=== PATIENT | female | born 1980 | race Native Hawaiian/Other Pacific Islander ===

== ENCOUNTER 2020-05-16 10:16 | Emergency (ER) | payer SELFPAY ==
[2020-05-16 11:08] LABS: Basophils % (Auto) 0.4 % (0.0-1.8); Eosinophils # (Auto) 0.2 K/mm3 (0.0-0.4); Eosinophils % (Auto) 1.8 % (0.0-4.3); Hematocrit 42.1 % (30.3-42.9); Mean Corpuscular HGB Conc 33 % (30-34); Mean Corpuscular Volume 93 fl (79-97); Monocytes # (Auto) 0.6 K/mm3 (0.0-0.8); Monocytes % (Auto) 6.3 % (0.0-7.3); Platelet Count 244 K/mm3 (140-440); Red Blood Count 4.54 M/mm3 (3.65-5.03); Red Cell Distribution Width 15.1 % (13.2-15.2)
--- NOTE | 2020-05-16 11:59 | Ultrasound Report ---
ULTRASOUND OBSTETRIC INDICATION / CLINICAL INFORMATION: pain, bleeding. Clinical Gestational Age (GA): 8.0 weeks.days TECHNIQUE: Transvaginal. COMPARISON: None available. FINDINGS: GESTATIONAL SAC: No intrauterine gestational sac is identified. YOLK SAC: No yolk sac is seen. EMBRYO/FETUS: No pole is identified. UTERUS: The uterus measures 11.3 x 5.6 x 6.7 cm. The endometrial stripe is thickened, measuring 2.6 c m in thickness. ADNEXA: The right ovary measures 2.4 x 1.5 x 1.9 cm and is normal in echogenicity. There is a 1 cm hy poechoic cyst arising from the right ovary. No significant Doppler flow is seen within this region. T he left ovary measures 2.2 x 1.8 x 1.7 cm and is normal in echogenicity. FREE FLUID: None. ADDITIONAL FINDINGS: None. IMPRESSION: 1. No intrauterine gestation is identified. The endometrial stripe is thickened. Correlation with bet a hCG levels and obstetric follow-up are recommended. demise and ectopic gestation cannot be ex cluded. 2. 1 cm right ovarian cyst without significant Doppler flow. Signer Name: Tanner Proctor MD Signed: 05/16/2020 11:55 AM Workstation Name: [id number]
[2020-05-16 12:49] VITALS: BP 120/65
[2020-05-16] MEDS ORDERED: IBUPROFEN 800 MG TAB PO ONE (13:05)
[2020-05-16] MEDS ORDERED: HYDROcodone/ACETAMINOPHEN 5-325 MG TAB PO ONE (13:05)
[2020-05-16] MEDS ORDERED: ONDANSETRON 4 MG ODT TAB PO ONE (13:05)
--- NOTE | 2020-05-16 13:34 | Emergency Department Report ---
ED Female HPI - General Chief complaint: Vaginal Bleeding Stated complaint: PREG BLEEDING Time Seen by Provider: 05/16/20 12:56 Source: patient Mode of arrival: Ambulatory Limitations: Language Barrier - History of Present Illness Initial comments: This is a 40-year-old female who is approximately 11 weeks with due date December 2020 who presents with heavy vaginal bleeding which began 11 PM last night. She had moderate right groin pain which radiates across the pelvic region. After ultrasound patient passed blood which contain tissue. Patient is quite upset that she may have had a miscarriage. MD Complaint: vaginal bleeding, pelvic pain -: Gradual, Last night Radiation: LLQ, RLQ Severity: moderate Severity scale (0 -10): 6 Quality: cramping Consistency: constant Improves with: none Worsens with: other (vaginal bleeding) Are you Now?: Yes Associated Symptoms: vaginal bleeding - Related Data Allergies Allergy/AdvReac Type Severity Reaction Status Date / Time No Known Allergies Allergy Unverified 05/16/20 10:39 ED Review of Systems ROS: Stated complaint: PREG BLEEDING Other details as noted in HPI Comment: All other systems reviewed and negative Constitutional: denies: fever, malaise Respiratory: denies: cough Gastrointestinal: abdominal pain Genitourinary: denies: urgency, dysuria Musculoskeletal: denies: back pain ED Past Medical Hx - Past Medical History Previous Medical History?: No - Surgical History Past Surgical History?: No - Social History Smoking Status: Never Smoker Substance Use Type: None ED Physical Exam - General Limitations: Language Barrier General appearance: alert, in no apparent distress - Head Head exam: Present: atraumatic, normocephalic - Eye Eye exam: Present: normal appearance - ENT ENT exam: Present: mucous membranes moist - Neck Neck exam: Present: normal inspection - Respiratory Respiratory exam: Present: normal lung sounds bilaterally. Absent: respiratory distress, wheezes, rales - Cardiovascular Cardiovascular Exam: Present: regular rate, normal rhythm, normal heart sounds. Absent: systolic murmur, diastolic murmur, rubs, gallop - GI/Abdominal GI/Abdominal exam: Present: soft, normal bowel sounds - Extremities Exam Extremities exam: Present: normal inspection - Back Exam Back exam: Present: normal inspection - Neurological Exam Neurological exam: Present: alert, oriented X3 - Psychiatric Psychiatric exam: Present: normal affect, normal mood, other (Tearful) - Skin Skin exam: Present: warm, dry, intact, normal color. Absent: rash ED Course Vital Signs 05/16/20 05/16/20 05/16/20 10:41 12:43 12:48 Temperature 99.4 F Pulse Rate 76 71 Respiratory 18 18 16 Rate Blood Pressure 122/61 Blood Pressure 120/65 [Left] O2 Sat by Pulse 99 100 Oximetry ED Medical Decision Making - Lab Data Result diagrams: 05/16/20 10:54 - Radiology Data Radiology results: report reviewed ULTRASOUND OBSTETRIC INDICATION / CLINICAL INFORMATION: pain, bleeding. Clinical Gestational Age (GA): 8.0 weeks.days TECHNIQUE: Transvaginal. COMPARISON: None available. FINDINGS: GESTATIONAL SAC: No intrauterine gestational sac is identified. YOLK SAC: No yolk sac is seen. EMBRYO/FETUS: No pole is identified. UTERUS: The uterus measures 11.3 x 5.6 x 6.7 cm. The endometrial stripe is thickened, measuring 2.6 cm in thickness. ADNEXA: The right ovary measures 2.4 x 1.5 x 1.9 cm and is normal in echogenicity. There is a 1 cm hypoechoic cyst arising from the right ovary. No significant Doppler flow is seen within this region. The left ovary measures 2.2 x 1.8 x 1.7 cm and is normal in echogenicity. FREE FLUID: None. ADDITIONAL FINDINGS: None. IMPRESSION: 1. No intrauterine gestation is identified. The endometrial stripe is thickened. Correlation with beta hCG levels and obstetric follow-up are recommended. demise and ectopic gestation cannot be excluded. 2. 1 cm right ovarian cyst without significant Doppler flow. - Medical Decision Making This is a 40-year-old female who presents with spontaneous complete . Ultrasound confirmed no intrauterine . I personally reviewed the blood and products of conception retained by patient in basin to confirm miscarriage. Blood type O+. Patient prescribed ibuprofen and [place] for pain. CBC within normal limits. Critical care attestation.: If time is entered above; I have spent that time in minutes in the direct care of this critically ill patient, excluding procedure time. ED Disposition Clinical Impression: Spontaneous miscarriage Disposition: DC-01 TO HOME OR SELFCARE Is pt being admited?: No Does the pt Need Aspirin: No Condition: Stable Instructions: Spontaneous Miscarriage (ED) Referrals: BRIGID FRYE MD [Staff Physician] - 3-5 Days Print Language: STATELESS
== END 2020-05-16 13:46 | disposition home or self-care (01) ==
LOC: ED 10:16
DX: O03.9 Complete or unspecified spontaneous abortion without complication (principal)
CPT/HCPCS: 36415; 76801; 76817; 84702; 84703; 85025; 86900; 86901; Q0162

== ENCOUNTER 2020-11-02 14:52 | Emergency (ER) | payer SELFPAY ==
--- NOTE | 2020-11-02 16:17 | Event Note ---
ED Screening Note Date of service: 11/02/20 Time: 16:14 ED Screening Note: pt currently 6wks 5 days . Presents with vaginal bleeding since last week. She is only has to use 1 pad and that was yesterday. She reports associated right-sided abdominal pain. She states that she went to the clinic this past Friday when she had an ultrasound. Showed no cardiac activity. She is G5, P3 Ab1 This initial assessment/diagnostic orders/clinical plan/treatment(s) is/are subject to change based on patients health status, clinical progression and re- assessment by fellow clinical providers in the ED. Further treatment and workup at subsequent clinical providers discretion. Patient/guardian urged not to elope from the ED as their condition may be serious if not clinically assessed and managed. Initial orders include: Labs/ultrasound
[2020-11-02 16:56] LABS: Basophils % (Auto) 0.3 % (0.0-1.8); Eosinophils # (Auto) 0.1 K/mm3 (0.0-0.4); Eosinophils % (Auto) 1.8 % (0.0-4.3); Hematocrit 40.8 % (30.3-42.9); Hemoglobin 13.9 gm/dl (10.1-14.3); Lymphocytes # (Auto) 1.9 K/mm3 (1.2-5.4); Lymphocytes % (Auto) 24.6 % (13.4-35.0); Mean Corpuscular HGB Conc 34 % (30-34); Mean Corpuscular Volume 93 fl (79-97); Monocytes # (Auto) 0.5 K/mm3 (0.0-0.8); Platelet Count 244 K/mm3 (140-440); Red Blood Count 4.41 M/mm3 (3.65-5.03)
[2020-11-02 17:06] LABS: Bacteria,Urine 1+ /HPF (Negative); Bilirubin,Urine NEG (Negative); Blood,Urine LG (Negative); Color,Urine Yellow (Yellow); Protein,Urine <15 mg/dL mg/dL (Negative); Urobilinogen,Urine < 2.0 mg/dL (<2.0)
[2020-11-02 17:08] LABS: Alanine Aminotransferase 25 units/L (7-56); Albumin 4.1 g/dL (3.9-5); BUN/Creatinine Ratio 14; Blood Urea Nitrogen 7 mg/dL (7-17); Calcium 8.8 mg/dL (8.4-10.2); Hemolysis Index 9
--- NOTE | 2020-11-02 19:17 | Ultrasound Report ---
ULTRASOUND OBSTETRIC INDICATION: Vaginal bleeding, 6.5 weeks . TECHNIQUE: Transabdominal. COMPARISON: None available. FINDINGS: GESTATIONAL SAC: Well-defined oval shape and intrauterine in location. YOLK SAC: Not seen. EMBRYO/FETUS: No significant abnormality. - [place]-Rump Length = 0.5 cm = 6 weeks, 2 day(s). - Heart Rate = 0 beats per minute. ADNEXA: No significant abnormality. FREE FLUID: None. ADDITIONAL FINDINGS: None. IMPRESSION: Single intrauterine without identification of heart tones, concerning for failed preg arvind. Signer Name: Pilo Galloway MD Signed: 11/02/2020 7:13 PM Workstation Name: [id number]
[2020-11-02 20:00] VITALS: BP 119/60
--- NOTE | 2020-11-02 20:30 | Emergency Department Report ---
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 Patient stated goes about less than 1 pad a day and describes it as more spotting. Patient does state that she is about 6 weeks and was seen by a clinic and was told that there is no heart rate. Patient denies any abdominal or pelvic pain. Patient denies any vaginal discharge or foul odor. Patient denies any nausea, vomiting, chest pain, shortness of breathe, fever, chills, headache, stiff neck, numbness, tingling. Patient denies any urinary symptoms. Patient denies any allergies or PMH. Family member present at bedside for translation purposes during physical exam and interview. -: week(s) Radiation: none Severity scale (0 -10): 0 Improves with: none Worsens with: none Associated symptoms: vaginal bleeding. denies: nausea/vomiting, vaginal d ischarge, abdominal pain, dysuria, headache, vision changes, malaise, dysparuenia, rash, seizure, shortness of breath, syncope, weakness Vaginal bleeding: light :: Yes Number of weeks : 6 Pre- care: none - Related Data Previous Rx's Medication Instructions Recorded Last Taken Type HYDROcodone/APAP 5-325 [[place] 1 each PO Q6HR PRN #10 tablet 05/16/20 Unknown Rx 5/325] Ibuprofen [Motrin 400 MG tab] 1 tab PO TID 5 Days #15 tablet 05/16/20 Unknown Rx Allergies Allergy/AdvReac Type Severity Reaction Status Date / Time No Known Allergies Allergy Unverified 05/16/20 10:39 ED Review of Systems ROS: Stated complaint: VAG BLEEDING 1 MOS PREG Other details as noted in HPI Comment: All other systems reviewed and negative Constitutional: denies: chills, fever Eyes: denies: eye pain, eye discharge, vision change ENT: denies: ear pain, throat pain Respiratory: denies: cough, shortness of breath, wheezing Cardiovascular: denies: chest pain, palpitations Endocrine: no symptoms reported Gastrointestinal: denies: abdominal pain, nausea, diarrhea Genitourinary: abnormal menses. denies: urgency, dysuria, discharge Musculoskeletal: denies: back pain, joint swelling, arthralgia Skin: denies: rash, lesions Neurological: denies: headache, weakness, paresthesias Psychiatric: denies: anxiety, depression Hematological/Lymphatic: denies: easy bleeding, easy bruising ED Past Medical Hx - Past Medical History Previous Medical History?: Yes - Surgical History Past Surgical History?: No - Social History Smoking Status: Never Smoker Substance Use Type: None - Medications Home Medications: Home Medications Medication Instructions Recorded Confirmed Last Taken Type HYDROcodone/APAP 5-325 [[place] 1 each PO Q6HR PRN #10 tablet 05/16/20 Unknown Rx 5/325] Ibuprofen [Motrin 400 MG tab] 1 tab PO TID 5 Days #15 tablet 05/16/20 Unknown Rx ED Physical Exam - General Limitations: Language Barrier General appearance: alert, in no apparent distress - Head Head exam: Present: atraumatic, normocephalic - Eye Eye exam: Present: normal appearance - Neck Neck exam: Present: normal inspection, full ROM - Respiratory Respiratory exam: Absent: respiratory distress - Cardiovascular Cardiovascular Exam: Present: regular rate - GI/Abdominal GI/Abdominal exam: Present: soft, normal bowel sounds. Absent: distended, tenderness, guarding, rebound, rigid, diminished bowel sounds - Extremities Exam Extremities exam: Present: full ROM - Back Exam Back exam: Present: normal inspection, full ROM. Absent: tenderness, CVA tenderness (R), CVA tenderness (L), muscle spasm, paraspinal tenderness, vertebral tenderness, rash noted - Neurological Exam Neurological exam: Present: alert, oriented X3, normal gait - Psychiatric Psychiatric exam: Present: normal affect, normal mood - Skin Skin exam: Present: warm, dry, intact, normal color. Absent: rash ED Course Vital Signs 11/02/20 19:59 Temperature 98.3 F Pulse Rate 78 Respiratory 16 Rate Blood Pressure 119/60 [Left] O2 Sat by Pulse 100 Oximetry - Reevaluation(s) Reevaluation #1: 11/02/20 20:28 Patient is speaking in full sentences with no signs of distress noted. ED Medical Decision Making - Lab Data Result diagrams: 11/02/20 16:36 11/02/20 16:36 Lab Results 11/02/20 11/02/20 11/02/20 Range/Units 16:21 16:36 16:36 WBC 7.6 (4.5-11.0) K/mm3 RBC 4.41 (3.65-5.03) M/mm3 Hgb 13.9 (10.1-14.3) gm/dl Hct 40.8 (30.3-42.9) % MCV 93 (79-97) fl MCH 32 (28-32) pg MCHC 34 (30-34) % RDW 14.0 (13.2-15.2) % Plt Count 244 (140-440) K/mm3 Lymph % (Auto) 24.6 (13.4-35.0) % [place] % (Auto) 7.0 (0.0-7.3) % Eos % (Auto) 1.8 (0.0-4.3) % Baso % (Auto) 0.3 (0.0-1.8) % Lymph # (Auto) 1.9 (1.2-5.4) K/mm3 [place] # (Auto) 0.5 (0.0-0.8) K/mm3 Eos # (Auto) 0.1 (0.0-0.4) K/mm3 Baso # (Auto) 0.0 (0.0-0.1) K/mm3 Seg Neutrophils % 66.3 (40.0-70.0) % Seg Neutrophils # 5.1 (1.8-7.7) K/mm3 Sodium 137 (137-145) mmol/L Potassium 3.8 (3.6-5.0) mmol/L Chloride 104.0 (98-107) mmol/L Carbon Dioxide 26 (22-30) mmol/L Anion Gap 11 mmol/L BUN 7 (7-17) mg/dL Creatinine 0.5 L (0.6-1.2) mg/dL Estimated GFR > 60 ml/min BUN/Creatinine Ratio 14 % Glucose 90 (65-100) mg/dL Calcium 8.8 (8.4-10.2) mg/dL Total Bilirubin < 0.20 (0.1-1.2) mg/dL AST 16 (5-40) units/L ALT 25 (7-56) units/L Alkaline Phosphatase 60 (35-129) units/L Total Protein 6.9 (6.3-8.2) g/dL Albumin 4.1 (3.9-5) g/dL Albumin/Globulin Ratio 1.5 % HCG, Quant (0-4) mIU/mL Urine Color Yellow (Yellow) Urine Turbidity Clear (Clear) Urine pH 6.0 (5.0-7.0) Ur Specific [place] 1.014 (1.003-1.030) Urine Protein <15 mg/dl (Negative) mg/dL Urine Glucose (UA) Neg (Negative) mg/dL Urine Ketones Neg (Negative) mg/dL Urine Blood Lg (Negative) Urine Nitrite Neg (Negative) Urine Bilirubin Neg (Negative) Urine Urobilinogen < 2.0 (<2.0) mg/dL Ur Leukocyte Esterase Sm (Negative) Urine WBC (Auto) 8.0 H (0.0-6.0) /HPF Urine RBC (Auto) 2.0 (0.0-6.0) /HPF U Epithel Cells (Auto) 3.0 (0-13.0) /HPF Urine Bacteria (Auto) 1+ (Negative) /HPF Blood Type Antibody Screen Screen 11/02/20 11/02/20 Range/Units 16:36 16:36 WBC (4.5-11.0) K/mm3 RBC (3.65-5.03) M/mm3 Hgb (10.1-14.3) gm/dl Hct (30.3-42.9) % MCV (79-97) fl MCH (28-32) pg MCHC (30-34) % RDW (13.2-15.2) % Plt Count (140-440) K/mm3 Lymph % (Auto) (13.4-35.0) % [place] % (Auto) (0.0-7.3) % Eos % (Auto) (0.0-4.3) % Baso % (Auto) (0.0-1.8) % Lymph # (Auto) (1.2-5.4) K/mm3 [place] # (Auto) (0.0-0.8) K/mm3 Eos # (Auto) (0.0-0.4) K/mm3 Baso # (Auto) (0.0-0.1) K/mm3 Seg Neutrophils % (40.0-70.0) % Seg Neutrophils # (1.8-7.7) K/mm3 Sodium (137-145) mmol/L Potassium (3.6-5.0) mmol/L Chloride (98-107) mmol/L Carbon Dioxide (22-30) mmol/L Anion Gap mmol/L BUN (7-17) mg/dL Creatinine (0.6-1.2) mg/dL Estimated GFR ml/min BUN/Creatinine Ratio % Glucose (65-100) mg/dL Calcium (8.4-10.2) mg/dL Total Bilirubin (0.1-1.2) mg/dL AST (5-40) units/L ALT (7-56) units/L Alkaline Phosphatase (35-129) units/L Total Protein (6.3-8.2) g/dL Albumin (3.9-5) g/dL Albumin/Globulin Ratio % HCG, Quant [id number] H (0-4) mIU/mL Urine Color (Yellow) Urine Turbidity (Clear) Urine pH (5.0-7.0) Ur Specific [place] (1.003-1.030) Urine Protein (Negative) mg/dL Urine Glucose (UA) (Negative) mg/dL Urine Ketones (Negative) mg/dL Urine Blood (Negative) Urine Nitrite (Negative) Urine Bilirubin (Negative) Urine Urobilinogen (<2.0) mg/dL Ur Leukocyte Esterase (Negative) Urine WBC (Auto) (0.0-6.0) /HPF Urine RBC (Auto) (0.0-6.0) /HPF U Epithel Cells (Auto) (0-13.0) /HPF Urine Bacteria (Auto) (Negative) /HPF Blood Type O POSITIVE Antibody Screen Negative Screen Negative - Radiology Data [facility] [address] [place] [address] Ultrasound Report Signed Patient: DONNIE HAQ MR#: [id number] : 1980 Acct:[id number] Age/Sex: 40 / F ADM Date: 11/02/20 Loc: ED Attending Dr: Ordering Physician: YAMIL QUEEN Date of Service: 11/02/20 Procedure(s): US OB <= 14 wk fetus add gest Accession Number(s): [id number] cc: YAMIL QUEEN ULTRASOUND OBSTETRIC INDICATION: Vaginal bleeding, 6.5 weeks . TECHNIQUE: Transabdominal. COMPARISON: None available. FINDINGS: GESTATIONAL SAC: Well-defined oval shape and intrauterine in location. YOLK SAC: Not seen. EMBRYO/FETUS: No significant abnormality. - [place]-Rump Length = 0.5 cm = 6 weeks, 2 day(s). - Heart Rate = 0 beats per minute. ADNEXA: No significant abnormality. FREE FLUID: None. ADDITIONAL FINDINGS: None. IM PRESSION: Single intrauterine without identification of heart tones, concerning for failed . Signer Name: Pilo Galloway MD Signed: 11/02/2020 7:13 PM Workstation Name: [id number] Transcribed By: DREW Dictated By: Pilo Galloway MD Electronically Authenticated By: Pilo Galloway MD Signed Date/Time: 11/02/201912 DD/ 10 TD/TT: - Medical Decision Making This is a 40-year-old female presents with threatened versus spontaneous miscarriage. Patient is stable and was examined by me. Normal abdominal exam. US OB obtained and dictated by the radiologist. Ua obtained. Quantative serum test obtained. Patient notified of the US report with no questions noted by the patient. Patient was instructed f/u with [facility] in 2 days for repeat quantitative test and possible ultrasound. RH factor positive. Labs within normal limits. At time of discharge, the patient does not seem toxic or ill in appearance. No acute signs of distress noted. Patient agrees to discharge treatment plan of care. No further questions noted by the patient. Family member present at bedside for translation purposes during physical exam, interview and discharge instructions. Critical care attestation.: If time is entered above; I have spent that time in minutes in the direct care of this critically ill patient, excluding procedure time. ED Disposition Clinical Impression: Threatened miscarriage Disposition: DC-01 TO HOME OR SELFCARE Is pt being admited?: No Does the pt Need Aspirin: No Condition: Stable Instructions: Threatened Miscarriage Additional Instructions: Follow-up with a [facility] doctor in 2 days for repeat hCG levels and possible ultrasound or if symptoms worsen and continue return to emergency room as soon as possible. Referrals: [facility] [Provider Group] [facility] [Provider Group] [facility] [Primary Care Provider] - Time of Disposition: 20:30
== END 2020-11-02 20:45 | disposition home or self-care (01) ==
LOC: ED 14:52
DX: O20.0 Threatened abortion (principal); Z79.899 Other long term (current) drug therapy; Z3A.01 Less than 8 weeks gestation of pregnancy
CPT/HCPCS: 36415; 76802; 80053; 81001; 84702; 85025; 85461; 86850; 86900; 86901